=== PATIENT | male | born 1950 | race Caucasian/White ===

== ENCOUNTER → 2023-01-04 15:19 | Outpatient (BNVA) | payer MEDICARE, OTHER, SELFPAY | PROVIDERS: Family Provider Orthopaedic Surgery; PCP Student in an Organized Health Care Education/Training Program; Visit Provider Nurse Practitioner Family | DX: L21.8 Other seborrheic dermatitis (principal); Z85.828 Personal history of other malignant neoplasm of skin; L57.0 Actinic keratosis; L81.4 Other melanin hyperpigmentation; D22.5 Melanocytic nevi of trunk; Z71.89 Other specified counseling; L85.3 Xerosis cutis; L57.8 Other skin changes due to chronic exposure to nonionizing radiation; L82.1 Other seborrheic keratosis; D69.2 Other nonthrombocytopenic purpura; L80 Vitiligo; Z87.891 Personal history of nicotine dependence | CPT/HCPCS: 17000; 17003; 99214 ==

== ENCOUNTER → 2023-07-06 13:53 | Outpatient (BNVA) | payer MEDICARE, OTHER, SELFPAY | PROVIDERS: Family Provider Orthopaedic Surgery; PCP Student in an Organized Health Care Education/Training Program; Visit Provider Nurse Practitioner Family | DX: Z08 Encounter for follow-up examination after completed treatment for malignant neoplasm (principal); Z85.828 Personal history of other malignant neoplasm of skin; L21.8 Other seborrheic dermatitis; L57.0 Actinic keratosis; L81.4 Other melanin hyperpigmentation; D22.5 Melanocytic nevi of trunk; L85.3 Xerosis cutis; L57.8 Other skin changes due to chronic exposure to nonionizing radiation; L29.8 Other pruritus; L80 Vitiligo; R21 Rash and other nonspecific skin eruption; D48.9 Neoplasm of uncertain behavior, unspecified | CPT/HCPCS: 17000; 99213 ==